=== PATIENT | female | born 1965 | race Caucasian/White ===

== ENCOUNTER 2019-02-07 09:00 | Day surgery (SDC) | payer OTHER ==
[2019-02-07] MEDS ORDERED: COLACE100 MG PO (14:22)
[2019-02-07] MEDS ORDERED: PERCOCET 5-3251 EACH PO (14:22)
== END 2019-02-07 17:35 | disposition home or self-care (01) ==
LOC: CIR.AMB 09:00
DX: K60.3 Anal fistula (principal); K64.4 Residual hemorrhoidal skin tags

== ENCOUNTER 2019-02-22 09:05 | Inpatient (IN) | payer OTHER ==
[~2019-02-22] VITALS: Ht 157.5 cm; Wt 76.7 kg
[~2019-02-22 09:05] MED LIST: COLACE100 MG PO; PERCOCET 5-3251 EACH PO
--- NOTE | 2019-02-22 09:31 | NUR ---
PTE INDICA QUE TUVO OPERACION EL FEB 20 DE FREDI FISTULA ANAL CON DRENAJE Y REFIERE DOLOR Y FIEBRE. PTE ALERTA CONSCIENTE Y ORIENTADA X3
--- NOTE | 2019-02-22 10:33 | NUR ---
PT SE UBICA EN AREA DE OBGYN PARA EXAMEN ANAL. SE PREPARA A PT EN AREA. PT ES EVALUADA POR DR POWELL. SE OBSERVA CELULITIS EN GLUTEO RT CERCANO A AREA DE ANO. SE OBSERVA AREA ANTHONY, CALIENTE Y DURA A PALPACION. SE OBSERVAN SUTURAS EN AREA ANAL CON DRENAJE LINDA. AL MOMENTO NO SE OBSERVA DRENAJE DE SECRECIONES. PT TOLERA EXAMEN, SE UBICA EN AREA DE OBSERVACION.
--- NOTE | 2019-02-22 10:58 | NUR ---
EVALUA PACIENTE EL CUAL ORDENA [place] MEDICO;LOGRONO ORIENTA PACIENTE Y FAMILIAR LOS CUALES REFIEREN COMPRENDER. COLECTA MUESTRAS DE [facility] ORDEN MEDICA BAJO MEDIDAS ASEPTICAS. SE NOTIFICA ESTUDIO CT ABD/PEL IV A PERSONAL DE TURNO.
[2019-02-24] MEDS ORDERED: OMEPRAZOLE20 MG PO (08:25)
[2019-02-24] MEDS ORDERED: AMOX-CLAV 875-1 EACH PO (08:25)
[2019-03-13] MEDS ORDERED: [UNRECOGNIZED DRUG - OTHER] PO (17:11)
[2019-03-13] MEDS ORDERED: ULTRACET PO (17:11)
== END 2019-03-13 18:43 | disposition home or self-care (01) | DRG 348 ==
LOC: ER 09:05 → SURH 17:27
PROVIDERS: ADMIT Surgery
PROC: 0D9Q00Z Drainage of Anus with Drainage Device, Open Approach (ICD-10-PCS; principal; 2019-02-22)
PROC: BW21Y0Z Computerized Tomography (CT Scan) of Abdomen and Pelvis using Other Contrast, Unenhanced and Enhanced (ICD-10-PCS; 2019-02-22)
PROC: 3E0T3BZ Introduction of Anesthetic Agent into Peripheral Nerves and Plexi, Percutaneous Approach (ICD-10-PCS; 2019-02-23)
PROC: BW2GYZZ Computerized Tomography (CT Scan) of Pelvic Region using Other Contrast (ICD-10-PCS; 2019-03-03)
PROC: 8E0ZXY6 Isolation (ICD-10-PCS; 2019-03-03)
DX: K61.39 Other ischiorectal abscess (principal); B37.89 Other sites of candidiasis; K61.0 Anal abscess; B96.29 Other Escherichia coli [E. coli] as the cause of diseases classified elsewhere; B95.2 Enterococcus as the cause of diseases classified elsewhere; K64.1 Second degree hemorrhoids; D72.828 Other elevated white blood cell count; B96.1 Klebsiella pneumoniae [K. pneumoniae] as the cause of diseases classified elsewhere

== ENCOUNTER 2019-03-17 15:44 | Inpatient (IN) | payer OTHER ==
[~2019-03-17] VITALS: Ht 157.5 cm; Wt 76.7 kg
[~2019-03-17 15:44] MED LIST changes: +AMOX-CLAV 875-1 EACH PO; +OMEPRAZOLE20 MG PO; +ULTRACET PO; +[UNRECOGNIZED DRUG - OTHER] PO
[2019-03-25] MEDS ORDERED: PRILOSEC OTC20 MG PO (08:02)
[2019-03-25] MEDS ORDERED: INTESTINEX680 M1 PO (08:02)
[2019-03-25] MEDS ORDERED: FLUCONAZOLE100 MG PO (08:02)
[2019-03-25] MEDS ORDERED: ZOFRAN8 MG PO (08:02)
== END 2019-03-25 10:57 | disposition home or self-care (01) | DRG 331 ==
LOC: ER 15:44 → SEC-K 17:45 → SURG 17:45 → SURH 03-21 16:42 → SURG 03-21 16:53 → SURH 03-21 17:38
PROVIDERS: ADMIT Surgery
PROC: BW2GY0Z Computerized Tomography (CT Scan) of Pelvic Region using Other Contrast, Unenhanced and Enhanced (ICD-10-PCS; 2019-03-17)
PROC: 3E0T3BZ Introduction of Anesthetic Agent into Peripheral Nerves and Plexi, Percutaneous Approach (ICD-10-PCS; 2019-03-18)
PROC: 0D9P00Z Drainage of Rectum with Drainage Device, Open Approach (ICD-10-PCS; principal; 2019-03-18 17:45)
DX: K61.39 Other ischiorectal abscess (principal); K64.1 Second degree hemorrhoids; E66.09 Other obesity due to excess calories; K63.89 Other specified diseases of intestine; B96.29 Other Escherichia coli [E. coli] as the cause of diseases classified elsewhere; B95.2 Enterococcus as the cause of diseases classified elsewhere; R50.9 Fever, unspecified

== ENCOUNTER 2019-11-14 06:37 | Day surgery (SDC) | payer OTHER ==
[~2019-11-14 06:37] MED LIST changes: +FLUCONAZOLE100 MG PO; +INTESTINEX680 M1 PO; +PRILOSEC OTC20 MG PO; +ZOFRAN8 MG PO
[2019-11-14] MEDS ORDERED: PERCOCET 5-3251 EACH PO (11:28)
== END 2019-11-14 16:30 | disposition home or self-care (01) ==
LOC: CIR.AMB 06:37
PROVIDERS: ATTEND Surgery
DX: K60.3 Anal fistula (principal)

== ENCOUNTER 2021-02-18 06:29 | Day surgery (SDC) | payer OTHER ==
[2021-02-18] MEDS ORDERED: COLACE100 MG PO (08:39)
[2021-02-18] MEDS ORDERED: PERCOCET 5-3251 EACH PO (08:39)
[2021-02-18] MEDS ORDERED: FLAGYL500MG PO (16:04)
[2021-02-18] MEDS ORDERED: CIPRO500 MG PO (16:04)
== END 2021-02-18 15:00 | disposition home or self-care (01) ==
LOC: CIR.AMB 06:29
PROVIDERS: ATTEND Surgery
DX: K60.3 Anal fistula (principal); Z20.822 Contact with and (suspected) exposure to COVID-19

== ENCOUNTER → 2021-02-18 06:33 | Outpatient (CLI) | payer OTHER ==
[~2021-02-18 06:33] MED LIST changes: +CIPRO500 MG PO; +FLAGYL500MG PO
== END | disposition home or self-care (01) ==
LOC: LAB 02-17 15:08
PROVIDERS: ATTEND Surgery
DX: Z11.59 Encounter for screening for other viral diseases (principal)

== ENCOUNTER 2023-03-09 05:20 | Day surgery (SDC) | payer OTHER ==
[~2023-03-09] VITALS: Ht 157.5 cm; Wt 76.7 kg
[2023-03-09] MEDS ORDERED: PERCOCET 5-3251 EACH PO (10:17)
[2023-03-09] MEDS ORDERED: NEURONTIN300 MG PO (10:17)
== END 2023-03-09 14:25 | disposition home or self-care (01) ==
LOC: CIR.AMB 05:20
PROVIDERS: ATTEND Surgery
DX: K60.3 Anal fistula (principal); K62.89 Other specified diseases of anus and rectum; K64.4 Residual hemorrhoidal skin tags; I10 Essential (primary) hypertension; Z20.822 Contact with and (suspected) exposure to COVID-19; Z88.6 Allergy status to analgesic agent; Z91.013 Allergy to seafood